=== PATIENT | female | born 1940 | race Caucasian/White ===

== ENCOUNTER 2022-05-02 17:34 | Emergency (ER) | payer MEDICARE, OTHER | END 2022-05-02 17:37 | disposition left against medical advice (07) | LOC: MADERS 17:34 | DX: Z53.21 Procedure and treatment not carried out due to patient leaving prior to being seen by health care provider (principal) ==

== ENCOUNTER 2025-06-14 09:28 | Outpatient (CLI) | payer MEDICARE, OTHER ==
[2025-06-14 10:23] LABS: ALT (SGPT) 29 U/L (Less than 34); AST (SGOT) 38 U/L (11-34); Albumin 3.6 g/dL (3.1-4.5); Anion Gap 14 mmol/L (10-20); BUN (Urea Nitrogen) 17 mg/dL (9.8-20.1); Bilirubin, Total 0.7 mg/dL (0.3-1.2); Calc. Creatinine Clearance 0 mL/min (70-130); Calcium 9.2 mg/dL (7.8-10.44); Carbon Dioxide 27 mmol/L (23-31); Cardiac Risk 2.7 (Less than 4.5); Chloride 107 mmol/L (98-107); Cholesterol 185 mg/dl (< 200 Desired); Globulin 2.7 g/dL (2.4-3.5); Glucose 94 mg/dL (83-110); HDL Cholesterol 69 mg/dL (>60 Neg Risk); LDL Cholesterol, Calculated 104 mg/dL; Potassium 3.9 mmol/L (3.5-5.1); Sodium 144 mmol/L (136-145); Triglycerides 60 mg/dL (Less than 150)
[2025-06-14 11:04] LABS: Alkaline Phosphatase 67 U/L (40-110)
== END 2025-06-14 09:29 | disposition home or self-care (01) ==
LOC: MADLAB 09:28
PROVIDERS: ATTEND Physician Assistant Medical
DX: I25.10 Atherosclerotic heart disease of native coronary artery without angina pectoris (principal)
CPT/HCPCS: 36415; 80053; 80061